=== PATIENT | male | born 1980 | race Caucasian/White ===

== ENCOUNTER 2021-11-30 11:56 | Emergency (ER) | payer OTHER, SELFPAY ==
[2021-11-30 12:03] VITALS: BP 136/87; PULSE 80; RESP 16; TEMP 37.3; O2SAT 100
--- NOTE | 2021-11-30 12:06 | ED.URI ---
HPI - URI/Sore Throat General Chief Complaint: Upper Respiratory Infection Stated Complaint: Sore Throat Time Seen by Provider: 11/30/21 12:00 Source: patient and RN notes reviewed History of Present Illness HPI Narrative: Patient is a 41-year-old male who presents the urgent care with complaints of a sore throat. Patient states that started 1 week ago and his doctor refuses to see him until he has a negative PCR test. Patient denies of any known past COVID diagnosis. States that he had one vaccination and had palpitations and health anxiety . Patient did not further the vaccine. Patient denies of any headache, nausea, vomiting, fever. Patient has not taken anything [id number] for his symptoms. No other acute complaints. No acute distress noted. Patient aware of the plan of care. Some parts of this dictation were generated by voice recognition software and may contain typographical and/or grammatical inaccuracies. Related Data Allergies Allergy/AdvReac Type Severity Reaction Status Date / Time Penicillins Allergy Unknown Rash Verified 11/30/21 12:11 Review of Systems Review of Systems: CONSTITUTIONAL: Denies fever, chills, or sweats. EYES: Denies visual changes, redness, or discharge. ENT: Denies rhinorrhea, congestion, otalgia. Reports of sore throat CARDIOVASCULAR: Denies chest pain, palpitations, or edema. RESPIRATORY: Denies cough or dyspnea. GASTROINTESTINAL: Denies abdominal pain, nausea, vomiting, or diarrhea. GENITOURINARY: Denies dysuria or hematuria. SKIN: Denies rash or itching. MUSCULOSKELETAL: Denies back pain, joint pain, or myalgia. NEUROLOGIC: Denies headache, numbness, or weakness. All other systems reviewed are negative, except as documented in HPI. PMFSH Comments At the time of my signature, I reviewed and agree with the nursing past medical, surgical, social, and family history. There is no relevant family history pertinent to the patient complaint. Exam Narrative: GENERAL: This is a well-nourished, well-developed patient, in no apparent distress. HEAD: normocephalic, atraumatic. EYES: PERRL. Sclera clear/white. Vision is grossly intact. EARS: External ears normal, auditory canals clear and without drainage, TMs normal without perforation. Hearing grossly intact. NOSE: External nose normal with no obvious nasal discharge, nares without redness, no rhinorrhea. THROAT: Mucous membranes moist. Mild erythema noted to posterior oropharynx with mild postnasal drainage NECK: Neck supple, non-tender without lymphadenopathy CARDIOVASCULAR: Regular rate and rhythm without murmurs, gallops, or rubs. RESPIRATORY: Clear to auscultation. Breath sounds equal bilaterally. No wheezes, rales, or rhonchi. SKIN: warm, intact with no suspicious lesions or rash, good texture and turgor. NEURO: awake, alert, and oriented to person, place and time. There were no obvious focal neurologic abnormalities. EXTREMITIES: No clubbing, cyanosis, or edema. Course Course Level of Care: Express Care Visit Vital Signs Vital signs: Vital Signs Temperature 99.1 F 11/30/21 12:03 Pulse Rate 80 11/30/21 12:03 Respiratory Rate 16 11/30/21 12:03 Blood Pressure 136/87 11/30/21 12:03 Pulse Oximetry 100 11/30/21 12:03 Temperature 99.1 F 11/30/21 12:03 Pulse Rate 80 11/30/21 12:03 Respiratory Rate 16 11/30/21 12:03 Blood Pressure 136/87 11/30/21 12:03 Pulse Oximetry 100 11/30/21 12:03 Reviewed MDM - URI/Sore Throat MDM Narrative Medical decision making narrative: Reviewed lab results with the patient. He is aware that strep swab was negative. Educated patient on culture we will call within 72 hours culture is positive and antibiotics necessary. We will call you on the PCR results within 2 days. However, considering your symptoms have been ongoing for 1 week you would be considered out of quarantine. Advised the patient to complete the steroid regimen as prescribed. Make sure to eat and drink wi
[2021-12-01 17:14] LABS: SARS-CoV-2 RNA PCR Negative
== END 2021-11-30 12:40 | disposition home or self-care (01) ==
PROVIDERS: Emergency Provider Nurse Practitioner Family; PCP Nurse Practitioner Family
DX: J02.9 Acute pharyngitis, unspecified (principal); Z20.822 Contact with and (suspected) exposure to COVID-19
CPT/HCPCS: 87081; 87880; 99213; C9803; G0463; U0003; U0005

== ENCOUNTER 2022-01-31 10:45 | Emergency (ER) | payer OTHER, SELFPAY ==
[2022-01-31 10:49] VITALS: BP 148/88; PULSE 90; RESP 20; TEMP 36.9; O2SAT 100
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
== END 2022-01-31 12:11 | disposition home or self-care (01) ==
PROVIDERS: Emergency Provider Nurse Practitioner; PCP Nurse Practitioner Family
DX: T22.212A Burn of second degree of left forearm, initial encounter (principal); T22.242A Burn of second degree of left axilla, initial encounter; T31.0 Burns involving less than 10% of body surface; X16.XXXA Contact with hot heating appliances, radiators and pipes, initial encounter
CPT/HCPCS: 99212; G0463

== ENCOUNTER 2023-12-02 14:37 | Emergency (ER) | payer OTHER, SELFPAY ==
--- NOTE | ~2023-12-02 | XR_ITS ---
EXAM: XR shoulder LT min 2V DATE: 12/02/2023 15:01 HISTORY: FELL FORWARD OFF OF SKATEBOARD X 1 WEEK AGO. LROM. . COMPARISON: None available. FINDINGS: Normal mineralization. No fracture or dislocation. No lytic or blastic lesion. Mild degene rative change at the AC joint. No erosion or periosteal change. Soft tissues within normal limits. IMPRESSION: No acute osseous finding the left shoulder. Reviewed, dictated and finalized at location K. NING MATRON
[2023-12-02 14:42] VITALS: BP 133/82; PULSE 89; RESP 20; TEMP 37.1; O2SAT 100
--- NOTE | 2023-12-02 15:02 | ED.UPPEXIN ---
HPI - Extremity Injury (Upper) General Chief Complaint: Extremity Injury, Upper Stated Complaint: Left Shoulder Injury Source: patient, RN notes reviewed and old records reviewed Mode of arrival: ambulatory Limitations: no limitations History of Present Illness HPI narrative: 43-year-old male patient presents to [facility] with complaint left shoulder pain that started 1 week ago after patient fell off his Motorized skateboard. patient states his nonpainful to palpitation but hurts with any type of range of motion. Patient has not tried or taken anything for pain. Related Data Home Medications Medication Instructions Recorded Confirmed No Home Medications 12/02/23 12/02/23 Allergies Allergy/AdvReac Type Severity Reaction Status Date / Time Penicillins Allergy Unknown Rash Verified 12/02/23 15:03 Review of Systems Constitutional: Constitutional: Reports no additional constitutional complaints, Denies body ache(s), Denies chills, Denies fatigue, Denies fever(s) and Denies headache(s) Eyes: Eyes: Reports no additional eye complaints and Denies blurry vision ENT: Reports system reviewed and no additional complaints, except as documented, Denies vertigo, Denies dizziness, Denies ear discharge, Denies otalgia, Denies facial pain, Denies headache(s), Denies nasal congestion, Denies nasal discharge, Denies sinus pain, Denies sinus pressure and Denies sore throat Cardiovascular: Cardiovascular: Reports no additional cardiovascular complaints, Denies chest pain, Denies chest pain at rest, Denies rapid heart rate and Denies dyspnea Respiratory: Respiratory: Reports no additional respiratory complaints, Denies chest congestion, Denies cough, Denies pain on inspiration, Denies pain with cough and Denies dyspnea Gastrointestinal: Gastrointestinal: Denies abdominal pain, Denies diarrhea, Denies nausea and Denies vomiting Musculoskeletal: Musculoskeletal: Reports as per HPI Comments: Left shoulder pain Integumentary/Breasts: Skin/Breast: Denies rash Neurologic: Reports system reviewed and no additional complaints, except as documented, Denies vertigo, Denies dizziness and Denies headache(s) Endocrine: Endocrine: Denies fatigue PMFSH Comments At the time of my signature, I reviewed and agree with the nursing past medical, surgical, social, and family history. There is no relevant family history pertinent to the patient complaint. Exam Const: General: cooperative, healthy appearing, no acute distress and well nourished Nutritional Appearance: well nourished Orientation/consciousness: patient oriented x3 Limitations: no limitations HENMT: Head: normal to inspection and normocephalic Ears: external ears normal, TM's normal bilaterally, mastoids normal and Abnormal EAC present Face/Nose/Sinus: normal facial exam Face and sinus: normal facial exam Mouth: Yes Normal oral and palatal mucosa present, Yes oropharynx normal and Yes moist mucous membranes Throat: tonsils normal, uvula midline and no uvular edema Eyes: General: appearance normal, both eyes and all related structures Sclera: sclerae normal Pupils: Equal, round and reactive pupils present Resp: Effort & Inspection: normal respiratory effort, able to speak in complete sentences, no audible wheezes, no cough, no respiratory distress and no retractions Skin: General skin exam: normal color and no rashes or lesions noted Neuro: General: patient oriented x3 Cranial nerves: Yes Equal, round and reactive pupils present Extrem: Left upper extremity: shoulder/upper arm inspection abnormal and abnormal ROM pain with active ROM and pain with passive ROM; no tenderness, no swelling, no abrasions, no lacerations, no ecchymosis, no crepitus, no foreign bodies, no penetrating wound, no deformity and no unsual warmth and elbow/forearm normal to inspection and normal ROM; no tenderness and no swelling Psych: Appearance: grossly normal Mental Status: mental status grossly
== END 2023-12-02 15:20 | disposition home or self-care (01) ==
PROVIDERS: Emergency Provider Registered Nurse; PCP Nurse Practitioner Family
DX: S43.402A Unspecified sprain of left shoulder joint, initial encounter (principal); V00.131A Fall from skateboard, initial encounter
CPT/HCPCS: 73030; 99213; G0463

== ENCOUNTER 2024-09-15 14:32 | Emergency (ER) | payer OTHER, SELFPAY ==
--- NOTE | ~2024-09-15 | XR_ITS ---
EXAM: XR knee LT min 4V DATE: 09/15/2024 15:51 HISTORY: pain; limited rom . COMPARISON: None available. FINDINGS: Decreased mineralization, possibly an artifact of technique. No fracture or dislocation. N o lytic or blastic lesion. Mild degenerative change. Quadriceps enthesopathy. No erosion or periostea l change. Soft tissues within normal limits. IMPRESSION: No acute osseous finding in the left knee. Reviewed, dictated and finalized at location K. AGING MACHINE OPERATOR
[2024-09-15 14:46] VITALS: BP 133/91; PULSE 97; RESP 20; TEMP 36.7; O2SAT 99
--- NOTE | 2024-09-15 16:06 | ED.GENADULT ---
HPI - General Adult General Chief complaint: Extremity Problem,Nontraumatic Stated complaint: left knee pain Time Seen by Provider: 09/15/24 15:21 Source: patient, RN notes reviewed and old records reviewed Mode of arrival: ambulatory Limitations: no limitations History of Present Illness HPI narrative: 44-year-old male to Express Care with complaint of left medial knee pain for 2 days. Patient denies injury, swelling, numbness, tingling, weakness. patient reports prior episodes of similar pain, states this is worse than prior episodes. Patient reports high pain tolerance, states he has not attempted to treat at home with [id number] medications. Patient reports using a knee brace with mild improvement. Patient states he would like to see his chiropractor for this however his chiropractor will not treat him without an x-ray. Patient requesting x-ray. Related Data Home Medications ?Medication ?Instructions ?Recorded ?Confirmed ?Last Taken ?Type No Home Medications 12/02/23 09/15/24 Unknown History Allergies Allergy/AdvReac Type Severity Reaction Status Date / Time Penicillins Allergy Unknown Rash Verified 09/15/24 14:51 Review of Systems Review of Systems: All systems reviewed & are unremarkable except as noted in HPI and below Constitutional: Constitutional: Reports no additional constitutional complaints Eyes: Eyes: Reports no additional eye complaints ENT: Reports system reviewed and no additional complaints, except as documented Cardiovascular: Cardiovascular: Reports no additional cardiovascular complaints, Denies chest pain and Denies dyspnea Respiratory: Respiratory: Reports no additional respiratory complaints, Denies cough and Denies dyspnea Musculoskeletal: Musculoskeletal: Reports no additional musculoskeletal complaints Neurologic: Reports system reviewed and no additional complaints, except as documented Psychiatric: Psychiatric: Reports no additional psychiatric complaints PMFSH Comments At the time of my signature, I reviewed and agree with the nursing past medical, surgical, social, and family history. There is no relevant family history pertinent to the patient complaint. Exam Const: General: cooperative, healthy appearing, comfortable, no acute distress, alert and well nourished Nutritional Appearance: well nourished Orientation/consciousness: patient oriented x3 Limitations: no limitations HENMT: Head: normal to inspection Ears: external ears normal Face/Nose/Sinus: Normal external nose present, Normal nares present, normal facial exam, No erythema and No edema Face and sinus: normal facial exam, no erythema and no edema Mouth: Yes Normal oral and palatal mucosa present Eyes: General: appearance normal, both eyes and all related structures Neck: Neck: normal visual inspection, full ROM and no meningeal signs Lymphatic: no lymphadenopathy noted and no lymphedema noted Chest: Chest palpation & inspection: normal inspection of the chest Resp: Effort & Inspection: normal respiratory effort and able to speak in complete sentences Auscultation: clear to auscultation bilaterally Cardio: Jugular venous distension: no JVD Rate: regular rate Rhythm: regular rhythm Back/Spine/Pelvis: Cervical Spine: cervical ROM normal Skin: General skin exam: normal color, no rashes or lesions noted and turgor normal Neuro: General: patient oriented x3, gait normal, moves all extremities and no meningeal signs Speech: normal speech Gait exam (Neuro): Normal gait present Extrem: General: normal to inspection, full ROM and capillary refill normal Psych: Appearance: grossly normal and well kempt Course Course Emergency Course: Some parts of this dictation were generated by voice recognition software and may contain typographical and/or grammatical inaccuracies. Level of Care: Express Care Visit Vital Signs Vital signs: Vital Signs Temperature 36.7 C 09/15/24 14:46 Pulse Rate 97 09/15/24 14:46 Respiratory Rate 20 09/15/24 14:46 Blood Pressure 133/91 H 09/15/24 14:46 Pulse Oximetry 99 09/15/24 14:46 Oxygen Delivery Room Air 09/15/24 14:46 Temperature 36.7 C 09/15/24 14:46 Pulse Rate 97 09/15/24 14:46 Respiratory Rate 20 09/15/24 14:46 Blood Pressure 133/91 H 09/15/24 14:46 Pulse Oximetry 99 09/15/24 14:46 Oxygen Delivery Room Air 09/15/24 14:46 reviewed Medical Decision Making MDM Narrative Medical decision making narrative: 44-year-old male to Express Care with complaint of left medial knee pain for 2 days. Patient denies injury, swelling, numbness, tingling, weakness. patient reports prior episodes of similar pain, states this is worse than prior episodes. Patient reports high pain tolerance, states he has not attempted to treat at home with [id number] medications. Patient reports using a knee brace with mild improvement. Patient states he would like to see his chiropractor for this however his chiropractor will not treat him without an x-ray. Patient requesting x-ray. On exam, anterior medial tenderness of left knee with palpation. Exam otherwise unremarkable radiology impression:No acute osseous finding in the left knee. Patient is sitting comfortably in exam room nontoxic in appearance. Patient appropriate for outpatient treatment and follow-up. Discharge instructions reviewed with patient, as well as provided in writing per nursing staff. The instructions also include specific and strict return/GO TO THE ER as well as f/u information. All questions have been answered, and the patient deny any further questions with discharge and discharge plan. Some parts of this dictation were generated by voice recognition software and may contain typographical and/or grammatical inaccuracies. Differential Diagnosis Differential Diagnosis: patellar fracture, knee sprain, knee pain, contusion of knee, DVT Vital Signs Vital Signs: Vital Signs Temperature 36.7 C 09/15/24 14:46 Pulse Rate 97 09/15/24 14:46 Respiratory Rate 20 09/15/24 14:46 Blood Pressure 133/91 H 09/15/24 14:46 Pulse Oximetry 99 09/15/24 14:46 Oxygen Delivery Room Air 09/15/24 14:46 Temperature 36.7 C 09/15/24 14:46 Pulse Rate 97 09/15/24 14:46 Respiratory Rate 20 09/15/24 14:46 Blood Pressure 133/91 H 09/15/24 14:46 Pulse Oximetry 99 09/15/24 14:46 Oxygen Delivery Room Air 09/15/24 14:46 Imaging Data Radiologist's impression: EXAM: XR knee LT min 4V DATE: 09/15/2024 15:51 HISTORY: pain; limited rom . COMPARISON: None available. FINDINGS: Decreased mineralization, possibly an artifact of technique. No fracture or dislocation. No lytic or blastic lesion. Mild degenerative change. Quadriceps enthesopathy. No erosion or periosteal change. Soft tissues within normal limits. IMPRESSION: No acute osseous finding in the left knee. Discharge Plan Discharge Clinical Impression: Left knee pain Patient Disposition: Home, Self-Care Condition: Stable Instructions: Knee Pain (ED) Additional Instructions: rest, ice, compression, elevation alternate Tylenol and ibuprofen as needed for pain for new or worsening symptoms go directly to the emergency department Patient Language: Hungarian Prescriptions: No Action No Home Medications Follow-up/Referrals: Villagomez,Mel A., TOOL CRIB CLERK [Primary Care Provider] - Stand Alone Forms: Work/School Release IP
--- NOTE | 2024-09-15 16:14 | PC.NURSE ---
RN to room to have Pt change into gown so PRODUCE MANAGER can examine the left leg. Pt declined, saying he has boxer's on, it's fine . Pt informed PRODUCE MANAGER will be in shortly to do her examination.
== END 2024-09-15 16:52 | disposition home or self-care (01) ==
PROVIDERS: Emergency Provider Nurse Practitioner Family; PCP Nurse Practitioner Family
DX: M25.562 Pain in left knee (principal)
CPT/HCPCS: 73564; 99213; G0463

== ENCOUNTER 2025-01-28 17:18 | Emergency (ER) | payer OTHER, SELFPAY ==
--- NOTE | ~2025-01-28 | XR_ITS ---
HISTORY: fell off electric skateboard COMPARISON: 12/02/2023 TECHNIQUE: 2 views of the left shoulder were performed FINDINGS: No acute fracture. The glenohumeral and acromioclavicular joint space is maintained The visualized portion of the adjacent left lung is clear. The humeral head is well seated within the glenoid fossa. IMPRESSION: No acute fracture or anterior dislocation. Reviewed, dictated and finalized at location A.
[2025-01-28 17:27] VITALS: BP 149/86; PULSE 90; RESP 18; TEMP 36.6; O2SAT 98
--- OUTSIDE RECORDS SUMMARY | 2025-01-28 17:35 | XMS_ITS | Clinical Summary ---
Author Organization [facility] Address [address] [place] [address] Phone Care Team Providers Care Repair Service Clerk Name Role Phone Vandana Tubbs MD Primary Care Provider [phone] Social History Tobacco Use Types Packs/Day Years Used Date Smoking Tobacco: Never Assessed Sex and Gender Information Value Date Recorded Sex Assigned at Not on file Legal Sex Male 11:47 PM CDT Gender Identity Not on file Sexual Orientation Not on file Plan of Treatment Health Maintenance Due Date Last Done Comments Hepatitis C Virus (HCV) Screening 1978 TdaP Immunization 1978 Hepatitis B Immunization (1 of 3 - 19+ 3-dose series) 1997 Colonoscopy 2023 Colorectal Cancer Screening 2023 Influenza Immunization (#1) 2024 SARS-COV-2 Immunization ( season) 2024 Respiratory Syncytial Virus (RSV) Immunization (Adult) (1 - 1-dose 75+ series) 2053 Meningococcal Immunization (ACWY) Aged Out No longer eligible based on patient's age to complete this topic Pneumococcal Immunization Combined Aged Out No longer eligible based on patient's age to complete this topic Rotavirus Immunization Aged Out No lo nger eligible based on patient's age to complete this topic Insurance MEDICAID [employer] Care Teams Repair Service Clerk Relationship Specialty Start Date End Date Vandana Tubbs MD [address] [place] [address] PCP - General Family Medicine 02/22/16
--- OUTSIDE RECORDS SUMMARY | 2025-01-28 17:36 | XMS_ITS | Data Portability ---
Author Organization [facility]ASH[facility]abel Address [address] [place] [address] Care Team Providers Care Biology Professor Name Role Phone BLACKWELL, MEL Primary Care Provider Assessment No assessment recorded. Plan of Treatment Reminders Order Date Submit Date Provider Last Modified By Organization Details Last Modified Time Details Appointments None recorded . Lab C reactive protein, QN, serum or plasma 2024 025 [facility], [address] [place] [address] 2, [place], [address], 5 16:14:40 magnesiu m, serum or plasma 2024 025 [facility], [address] [place] [address] 2, [place], [address], 5 03:08:37 cobalami n and folate panel, serum 2024 025 [facility], [address] [place] [address] 2, [place], [address], 5 16:14:35 TSH, ultra-se nsitive, serum 2024 025 [facility], [address] [facility] 2, [place], [address], 5 16:14:37 lipid panel, serum 2024 025 [facility], [address] [facility], [facility] 2, [place], [address], 5 03:08:34 CMP, serum or plasma 2024 025 [facility], [address] [facility], [facility] 2, [place], [address], 5 03:08:35 HbA1c (hemoglo bin A1c), blood 2024 025 [facility], [address] [facility], [facility] 2, [place], [address], 5 16:14:36 CBC w/ auto diff 2024 025 [facility], [address] [facility], [facility] 2, [place], [address], 5 03:08:38 erythroc yte sediment ation rate by westergr en method 2024 025 [facility], [address] [facility], [facility] 2, [place], [address], 5 16:14:39 respirat ory allergen panel - [facility] c 2024 025 [facility], [address] [facility], [facility] 2, [place], [address], 5 16:14:32 PEDRO (antinuc lear antibodi es) screen, ifa, serum 2024 025 [facility], [address] [facility], [facility] 2, [place], [address], 5 16:14:30 food allergen panel, serum 2024 025 [facility], [address] [facility], [facility] 2, [place], [address], 5 16:14:34 fecal occult blood, immunoas say, stool 2024 025 [facility], [address], [address], [place], [address], 5 09:42:41 Referral audiolog ist referral 2024 025 [facility], [address] [place], [address], 5 19:19:46 general surgeon referral 2023 024 GLENN Wylie MD, 4 [facility] , [address], [place], [address], 4 12:32:41 Procedures None recorded . Surgeries None recorded . Imaging CT, sinuses, w/o contrast 2024 025 [facility] Scheduling, 1 [facility] , [place], [address], 5 15:10:07 Medication Orders Zithroma x Z-Jerardo 250 mg tablet 2024 025 [id number], [address], [place], [place], [id number], 5 11:34:01 fluticas one propiona te 50 mcg/actu ation nasal spray,hernandez spension 2024 025 [id number], [address], [place], [place], [id number], 5 11:34:03 cetirizi ne 10 mg tablet 2024 025 [facility][id number], [address], [place], [place], [id number], 5 11:34:01 cefdinir 300 mg capsule 2023 025 [facility][id number], [address], [place], [place], [id number], 5 09:16:08 loratadi ne 10 mg tablet 2023 025 [facility][id number], [address], [place], [place], [id number], 5 09:16:11 loratadi ne 10 mg tablet 2023 024 [facility][id number], [address], [place], [place], [id number], 5 09:15:53 Patient TargetsNo targets recorded. Patient Instructions Encounter Date Encounter Id Patient Instructions Last Modified By Organization Details Last Modified Time 06/02/2024 [id number] inguinal hernia: care instructions Not available 06/02/2024 09:59:22 Quitting Tobacco : Care Instructions Not available 06/02/2024 10:13:54 -A hernia happen s when part of an organ protrudes through your muscle wall, usually in your abdomen or groin. It can be congenital or acquired. -If you aren't able to push the hernia in, the contents of the hernia may be trapped (incarcerated) in the abdominal wall. An incarcerated hernia can become strangulated, which cuts off the blood flow to the tissue that's trapped. A strangulated hernia can be life-threatening if it isn't treated. -Signs and symptoms of a strangulated hernia include: Nausea, vomiting or both Fever Sudden pain that quickly intensifies A hernia bulge that turns red, purple or dark Inability to move your bowels or pass gas -Seek immediate care if a hernia bulge turns red, purple or dark or if you notice any other signs or symptoms of a strangulated hernia. Not available 06/02/2024 10:13:43 follow up as needed Not available 06/02/2024 10:13:49 07/28/2024 [id number] A healthy lifestyle: care instructions Not available 07/28/2024 16:08:14 seasonal allergies: care instructions Not available 07/28/2024 16:07:43 Avoid potential triggers, take allergy medication daily. Sleep with windows closed and replace filters in HVAC regularly. Not available 07/28/2024 16:08:26 follow up as needed Not available 07/28/2024 16:09:14 10/05/2024 [id number] A healthy lifestyle: care instructions Not available 10/05/2024 12:15:45 chronic sinusitis: care instructions Not available 10/05/2024 12:16:48 seasonal allergies: care instructions Not available 10/05/2024 12:15:45 Take all antibiotics prescribed to you. If any fever or increase in pain, call/return to office. Not available 10/05/2024 12:16:55 follow up as needed Not available 10/05/2024 12:17:00 11/30/2024 [id number] A healthy lifestyle: care instructions Not available 11/30/2024 09:42:19 high cholesterol : care instructions Not available 11/30/2024 09:42:20 learning about mood disorders Not available 11/30/2024 09:42:19 Increase intake of fresh fruits, and vegetables. Avoid packaged foods and fast foods. Follow a low salt diet, drink at least 8-10 8oz glasses of water a day, exercise most days of the week. Take all medications as prescribed. Keep appointments with PCP and all specialists. Not available 12/01/2024 15:59:09 dwp labs needed, plan pending results Not available 12/01/2024 15:59:25 Reason for Referral General Surgeon Referral for Inguinal hernia Referring Physician: Mel Blackwell, Family Medicine, Encounter Date: 06/02/2024 Physical Sciences Instructor Referral for Fritz ateral tinnitus Referring Physician: Tuan Herr Otolaryngology, Encounter Date: 01/26/2025 Results Created Date Observation Date Name Description Value Unit Range Abnormal Flag Note LastModifiedBy Organization Detail LastModifiedTime 11/30/19 25 11/30/2024 LIPID PANEL cholesterol, total 157 mg/dL 100-19 9 Not Available [facility] Department [address] [place], [address], 12/01/2024 03:08:34 11/30/19 25 11/30/2024 LIPID PANEL triglyceride s 100 mg/dL 0-149 Not Available [facility] Department [address] [place], [address], 12/01/2024 03:08:34 11/30/19 25 11/30/2024 LIPID PANEL HDL cholesterol 42 mg/dL 40-999 Not Available [facility] Department [address] [place], [address], 12/01/2024 03:08:34 11/30/19 25 11/30/2024 LIPID PANEL VLDL cholesterol anthony 20 mg/dL 5-40 Not Available [facility] Department [address] [place] [address], [address], 12/01/2024 03:08:34 11/30/19 25 11/30/2024 LIPID PANEL LDL chol calc (nih) 108 mg/dL 0-99 above high normal Not Available [facility] Department [address] [place] [address], [address], 12/01/2024 03:08:34 11/30/19 25 11/30/2024 COMP. METAB OLIC PANEL (14) glucose 91 mg/dL 70-99 Not Available [facility] Department [address] [place], [address], 12/01/2024 03:08:35 11/30/19 25 11/30/2024 COMP. METAB OLIC PANEL (14) BUN 14 mg/dL 6-24 Not Available [facility] Department [address] [place] [address], [address], 12/01/2024 03:08:35 11/30/19 25 11/30/2024 COMP. METAB OLIC PANEL (14) creatinine 1.25 mg/dL 0.76-1 .27 Not Available [facility] Department [address] [place] [address], [address], 12/01/2024 03:08:35 11/30/19 25 11/30/2024 COMP. METAB OLIC PANEL (14) eGFR 72 >=60 Units for eGFR value s are mL/mi n/1.7 3 The eGFR Calcu latio n has not been valid ated for patie nts under the age of 18. If test resul ts are displ ayed for a patie nt under the age of 18, disre chucho that value . Not Available [facility] Department [address] [place] [address], [address], 12/01/2024 03:08:35 11/30/19 25 11/30/2024 COMP. METAB OLIC PANEL (14) BUN/creatini ne ratio 11 9-20 Not Available [facility] Department [address] [place] [address], [address], 12/01/2024 03:08:35 11/30/19 25 11/30/2024 COMP. METAB OLIC PANEL (14) sodium 141 mmol/ L 134-14 4 Not Available [facility] Department [address] [place] [address], [address], 12/01/2024 03:08:35 11/30/19 25 11/30/2024 COMP. METAB OLIC PANEL (14) potassium 4.1 mmol/ L 3.5-5. 2 Not Available [facility] Department [address] [place] [address], [address], 12/01/2024 03:08:35 11/30/19 25 11/30/2024 COMP. METAB OLIC PANEL (14) chloride 103 mmol/ L 96-106 Not Available [facility] Department [address] [place] [address], [address], 12/01/2024 03:08:35 11/30/19 25 11/30/2024 COMP. METAB OLIC PANEL (14) carbon dioxide, total 28 mmol/ L 20-29 Not Available [facility] Department [address] [place] [address], [place], [address], 12/01/2024 03:08:35 11/30/19 25 11/30/2024 COMP. METAB OLIC PANEL (14) calcium 9.7 mg/dL 8.7-10 .2 Not Available [facility] Department [address] [place], [address], 12/01/2024 03:08:35 11/30/19 25 11/30/2024 COMP. METAB OLIC PANEL (14) protein, total 7.2 g/dL 6.0-8. 5 Not Available [facility] Department [address] [place], [address], 12/01/2024 03:08:35 11/30/19 25 11/30/2024 COMP. METAB OLIC PANEL (14) albumin 4.7 g/dL 4.1-5. 1 Not Available [facility] Department [address] [place], [address], 12/01/2024 03:08:35 11/30/19 25 11/30/2024 COMP. METAB OLIC PANEL (14) globulin, total 2.5 g/dL 1.5-4. 5 Not Available [facility] Department [address] [place], [address], 12/01/2024 03:08:35 11/30/19 25 11/30/2024 COMP. METAB OLIC PANEL (14) A/G ratio 2.0 1.2-2. 2 Not Available [facility] Department [address] [place], [address], 12/01/2024 03:08:35 11/30/19 25 11/30/2024 COMP. METAB OLIC PANEL (14) bilirubin, total 0.4 mg/dL 0.0-1. 2 Not Available [facility] Department [address] [place], [address], 12/01/2024 03:08:35 11/30/19 11/30/2024 COMP. METAB OLIC PANEL (14) alkaline phosphatase 134 IU/L 44-121 above high normal Not Available [facility] Department [address] [place], [address], 12/01/2024 03:08:35 11/30/19 25 11/30/2024 COMP. METAB OLIC PANEL (14) AST (SGOT) 19 IU/L 0-40 Not Available [facility] Department [address] [place], [address], 12/01/2024 03:08:35 11/30/19 25 11/30/2024 COMP. METAB OLIC PANEL (14) ALT (SGPT) 35 IU/L 0-44 Not Available [facility] Department [address] [place], [address], 12/01/2024 03:08:35 11/30/19 25 11/30/2024 MAGNE SIUM magnesium 2.3 mg/L 1.6-2. 3 Not Available [facility] Department [address] [place], [address], 12/01/2024 03:08:37 11/30/19 25 11/30/2024 CBC WITH DIFFE RENTI AL/PL ATELE T WBC 4.4 x10e3 /uL 3.4-10 .8 Not Available [facility] Department [address] [place], [address], 12/01/2024 03:08:38 11/30/19 25 11/30/2024 CBC WITH DIFFE RENTI AL/PL ATELE T RBC 5.15 x10e6 /uL 4.14-5 .80 Not Available [facility] Department [address] [place], [address], 12/01/2024 03:08:38 11/30/19 25 11/30/2024 CBC WITH DIFFE RENTI AL/PL ATELE T hemoglobin 16.1 g/dL 13.0-1 7.7 Not Available [facility] Department [address] [place], [address], 12/01/2024 03:08:38 11/30/1911/30/2024 CBC WITH DIFFE RENTI AL/PL ATELE T hematocrit 46.1 % 37.5-5 1.0 Not Available [facility] Department [address] [place], [address], 12/01/2024 03:08:38 11/30/1911/30/2024 CBC WITH DIFFE RENTI AL/PL ATELE T MCV 90 fL 79-97 Not Available [facility] Department [address] [place], [address], 12/01/2024 03:08:38 11/30/1911/30/2024 CBC WITH DIFFE RENTI AL/PL ATELE T MCH 31.3 pg 26.6-3 3.0 Not Available [facility] Department [address] [place], [address], 12/01/2024 03:08:38 11/30/1911/30/2024 CBC WITH DIFFE RENTI AL/PL ATELE T MCHC 34.9 g/dL 31.5-3 5.7 Not Available [facility] Department [address] [place], [address], 12/01/2024 03:08:38 11/30/1911/30/2024 CBC WITH DIFFE RENTI AL/PL ATELE T RDW 12.6 % 11.5-1 4.5 Not Available [facility] Department [address] [place], [address], 12/01/2024 03:08:38 11/30/19 25 11/30/2024 CBC WITH DIFFE RENTI AL/PL ATELE T platelets 267 x10e3 /uL 150-45 0 Not Available [facility] Department [address] [place], [address], 12/01/2024 03:08:38 11/30/19 25 11/30/2024 CBC WITH DIFFE RENTI AL/PL ATELE T neutrophils 57 % notest b. Not Available [facility] Department [address] [place], [address], 12/01/2024 03:08:38 11/30/19 25 11/30/2024 CBC WITH DIFFE RENTI AL/PL ATELE T lymphs 33 % notest b. Not Available [facility] Department [address] [place], [address], 12/01/2024 03:08:38 11/30/19 25 11/30/2024 CBC WITH DIFFE RENTI AL/PL ATELE T monocytes 6 % notest b. Not Available [facility] Department [address] [place], [address], 12/01/2024 03:08:38 11/30/19 25 11/30/2024 CBC WITH DIFFE RENTI AL/PL ATELE T eos 3 % notest b. Not Available [facility] Department [address] [place], [address], 12/01/2024 03:08:38 11/30/19 25 11/30/2024 CBC WITH DIFFE RENTI AL/PL ATELE T basos 1 % notest b. Not Available [facility] Department [address] [place], [address], 12/01/2024 03:08:38 11/30/19 25 11/30/2024 CBC WITH DIFFE RENTI AL/PL ATELE T neutrophils (absolute) 2.5 x10e3 /uL 1.4-7. 0 Not Available [facility] Department [address] [place], [address], 12/01/2024 03:08:38 11/30/19 25 11/30/2024 CBC WITH DIFFE RENTI AL/PL ATELE T lymphs (absolute) 1.5 x10e3 /uL 0.7-3. 1 Not Available [facility] Department [address] [place], [address], 12/01/2024 03:08:38 11/30/19 25 11/30/2024 CBC WITH DIFFE RENTI AL/PL ATELE T monocytes(ab solute) 0.3 x10e3 /uL 0.1-0. 9 Not Available [facility] Department [address] [place], [address], 12/01/2024 03:08:38 11/30/19 25 11/30/2024 CBC WITH DIFFE RENTI AL/PL ATELE T eos (absolute) 0.1 x10e3 /uL 0.0-0. 4 Not Available [facility] Department [address] [place] [address], [address], 12/01/2024 03:08:38 11/30/19 25 11/30/2024 CBC WITH DIFFE RENTI AL/PL ATELE T baso (absolute) 0.0 x10e3 /uL 0.0-0. 2 Not Available [facility] Department [address] [place] [address], [address], 12/01/2024 03:08:38 11/30/19 25 11/30/2024 CBC WITH DIFFE RENTI AL/PL ATELE T immature granulocytes 0.2 % notest b. Not Available [facility] Department [address] [place] [address], [address], 12/01/2024 03:08:38 11/30/19 25 11/30/2024 CBC WITH DIFFE RENTI AL/PL ATELE T immature grans (abs) 0.0 x10e3 /uL 0.0-0. 1 Not Available [facility] Department [address] [place] [address], [address], 12/01/2024 03:08:38 11/30/19 25 11/30/2024 CBC WITH DIFFE RENTI AL/PL ATELE T NRBC 0 % 0-0 Not Available [facility] Department [address], [place], [address], 12/01/2024 03:08:38 11/30/1912/02/2024 PEDRO BY IFA RFX TITER /VALERY ZAHIDA PEDRO by ifa rfx titer/patter n POSITI VE abnormal Negat jen <1:80 Borde rline 1:80 Posit jen >1:80 Not Available [facility] ([facility]) [address] [facility], [place], [address], 12/03/2024 16:14:30 11/30/1911/30/2024 ALLER GENS W/TOT AL IGE AREA 8 class description COMMEN T Level s of Speci fic IgE Class Descr iptio n of Class ----- ----- ----- ----- ----- -- ----- ----- ----- ----- ----- < 0.10 0 Negat jen 0.10 - 0.31 0/I Equiv ocal/ Low 0.32 - 0.55 I Low 0.56 - 1.40 II Moder ate 1.41 - 3.90 III High 3.91 - 19.00 IV Very High 19.01 - 100.0 0 V Very High >100. 00 Very High Not Available [facility] ([facility]) [address] [facility], [place], [address], 12/03/2024 16:14:32 11/30/19 25 12/03/2024 ALLER GENS W/TOT AL IGE AREA 8 immunoglobul in E, total 106 IU/mL 6-495 Not Available [facility] ([facility]) [address] [place], [address], 12/03/2024 16:14:32 11/30/19 25 12/03/2024 ALLER GENS W/TOT AL IGE AREA 8 U309-RbI D pteronyssinu s <0.10 kU/L class0 Not Available [facility] ([facility]) [address] [facility], [place], [address], 12/03/2024 16:14:32 11/30/19 25 12/03/2024 ALLER GENS W/TOT AL IGE AREA 8 B780-YsA D farinae <0.10 Not Available [facility] ([facility]) [address] [facility], [place], [address], 12/03/2024 16:14:32 11/30/19 25 12/03/2024 ALLER GENS W/TOT AL IGE AREA 8 G381-FoJ CAT dander <0.10 Not Available [facility] ([facility]) [address] [facility], [place], [address], 12/03/2024 16:14:32 11/30/19 25 12/03/2024 ALLER GENS W/TOT AL IGE AREA 8 B321-JuJ dog dander <0.10 Not Available [facility] ([facility]) [address] [facility], [place], [address], 12/03/2024 16:14:32 11/30/19 25 12/03/2024 ALLER GENS W/TOT AL IGE AREA 8 F300-TnN mouse urine <0.10 Not Available [facility] ([facility]) [address] [facility], [place], [address], 12/03/2024 16:14:32 11/30/19 25 12/03/2024 ALLER GENS W/TOT AL IGE AREA 8 l554-LgE bermuda grass <0.10 Not Available [facility] ([facility]) [address] [facility], [place], [address], 12/03/2024 16:14:32 11/30/19 25 12/03/2024 ALLER GENS W/TOT AL IGE AREA 8 n756-AfV jona grass <0.10 Not Available [facility] ([facility]) [address] [facility], [place], [address], 12/03/2024 16:14:32 11/30/19 25 12/03/2024 ALLER GENS W/TOT AL IGE AREA 8 T999-GwH cockroach, estonian <0.10 Not Available [facility] ([facility]) [address] [facility], [place], [address], 12/03/2024 16:14:32 11/30/19 25 12/03/2024 ALLER GENS W/TOT AL IGE AREA 8 F706-OjF penicillium chrysogen <0.10 Not Available [facility] ([facility]) [address] [facility], [place], [address], 12/03/2024 16:14:32 11/30/19 25 12/03/2024 ALLER GENS W/TOT AL IGE AREA 8 R737-McT cladosporium herbarum <0.10 Not Available [facility] ([facility]) [address] [facility], [place], [address], 12/03/2024 16:14:32 11/30/19 25 12/03/2024 ALLER GENS W/TOT AL IGE AREA 8 B549-YwO aspergillus fumigatus <0.10 Not Available [facility] ([facility]) [address] [facility], [place], [address], 12/03/2024 16:14:32 11/30/19 25 12/03/2024 ALLER GENS W/TOT AL IGE AREA 8 M758-YpD alternaria alternata <0.10 Not Available [facility] ([facility]) [address] [facility], [place], [address], 12/03/2024 16:14:32 11/30/19 25 12/03/2024 ALLER GENS W/TOT AL IGE AREA 8 N805-WdE maple/box elder <0.10 Not Available [facility] ([facility]) [address] [facility], [place], [address], 12/03/2024 16:14:32 02/24/20 25 12/03/2024 ALLER GENS W/TOT AL IGE AREA 8 E152-KvZ cedar, mountain <0.10 Not Available [facility] ([facility]) [address], [place], [address], 12/03/2024 16:14:32 11/30/19 25 12/03/2024 ALLER GENS W/TOT AL IGE AREA 8 F845-OvS oak, white <0.10 Not Available [facility] ([facility]) [address], [place], [address], 12/03/2024 16:14:32 11/30/19 25 12/03/2024 ALLER GENS W/TOT AL IGE AREA 8 E433-MyJ elm, faroese <0.10 Not Available [facility] ([facility]) [address], [place], [address], 12/03/2024 16:14:32 11/30/19 25 12/03/2024 ALLER GENS W/TOT AL IGE AREA 8 J966-JxL walnut <0.10 Not Available [facility] ([facility]) [address], [place], [address], 12/03/2024 16:14:32 11/30/19 25 12/03/2024 ALLER GENS W/TOT AL IGE AREA 8 F378-AsO maple leaf sycamore <0.10 Not Available [facility] ([facility]) [address], [place], [address], 12/03/2024 16:14:32 11/30/19 25 12/03/2024 ALLER GENS W/TOT AL IGE AREA 8 H437-JgG cottonwood <0.10 Not Available [facility] ([facility]) [address], [place], [address], 12/03/2024 16:14:32 11/30/19 25 12/03/2024 ALLER GENS W/TOT AL IGE AREA 8 Z097-OhW binh, white <0.10 Not Available [facility] ([facility]) [address] [facility], [place], [address], 12/03/2024 16:14:32 11/30/19 25 12/03/2024 ALLER GENS W/TOT AL IGE AREA 8 N760-KsE pecan, hickory <0.10 Not Available [facility] ([facility]) [address] [facility], [place], [address], 12/03/2024 16:14:32 11/30/19 25 12/03/2024 ALLER GENS W/TOT AL IGE AREA 8 H189-GkU white mulberry <0.10 Not Available [facility] ([facility]) [address] [facility], [place], [address], 12/03/2024 16:14:32 11/30/19 25 12/03/2024 ALLER GENS W/TOT AL IGE AREA 8 Z514-CpJ ragweed, short <0.10 Not Available [facility] ([facility]) [address] [place], [address], 12/03/2024 16:14:32 11/30/19 25 12/03/2024 ALLER GENS W/TOT AL IGE AREA 8 V830-YrD thistle, rwandan <0.10 Not Available [facility] ([facility]) [address] [facility], [place], [address], 12/03/2024 16:14:32 11/30/19 25 12/03/2024 ALLER GENS W/TOT AL IGE AREA 8 X870-ZzR pigweed, common <0.10 Not Available [facility] ([facility]) [address] [facility], [place], [address], 12/03/2024 16:14:32 11/30/19 25 12/03/2024 ALLER GENS W/TOT AL IGE AREA 8 L895-BcL rough marshelder <0.10 Not Available [facility] ([facility]) [address] [place], [address], 12/03/2024 16:14:32 11/30/19 25 12/03/2024 FOOD ALLER GY PROFI LE T673-UzJ egg white <0.10 Not Available [facility] ([facility]) [address] [place], [address], 12/03/2024 16:14:33 11/30/19 25 12/03/2024 FOOD ALLER GY PROFI LE F745-OkZ peanut <0.10 Not Available [facility] ([facility]) [address] [place], [address], 12/03/2024 16:14:33 11/30/19 25 12/03/2024 FOOD ALLER GY PROFI LE P331-ImA soybean <0.10 Not Available [facility] ([facility]) [address] [place], [address], 12/03/2024 16:14:33 11/30/19 25 12/03/2024 FOOD ALLER GY PROFI LE K983-VdW milk 0.12 kU/L class0 /I abnormal Not Available [facility] ([facility]) [address] [place], [address], 12/03/2024 16:14:33 11/30/19 25 12/03/2024 FOOD ALLER GY PROFI LE F368-GjD clam <0.10 kU/L class0 Not Available [facility] ([facility]) [address] [place], [address], 12/03/2024 16:14:33 11/30/19 25 12/03/2024 FOOD ALLER GY PROFI LE D726-WoQ shrimp <0.10 Not Available [facility] ([facility]) [address] [place], [address], 12/03/2024 16:14:33 11/30/19 25 12/03/2024 FOOD ALLER GY PROFI LE L590-LlG walnut <0.10 Not Available [facility] ([facility]) [address] [facility], [place], [address], 12/03/2024 16:14:33 11/30/19 25 12/03/2024 FOOD ALLER GY PROFI LE E793-AtI codfish <0.10 Not Available [facility] ([facility]) [address] [facility], [place], [address], 12/03/2024 16:14:33 11/30/19 25 12/03/2024 FOOD ALLER GY PROFI LE E175-CiE scallop <0.10 Not Available [facility] ([facility]) [address] [facility], [place], [address], 12/03/2024 16:14:33 11/30/19 25 12/03/2024 FOOD ALLER GY PROFI LE V495-SuA wheat <0.10 Not Available [facility] ([facility]) [address] [facility], [place], [address], 12/03/2024 16:14:33 11/30/19 25 12/03/2024 FOOD ALLER GY PROFI LE Q199-JsP corn <0.10 Not Available [facility] ([facility]) [address] [facility], [place], [address], 12/03/2024 16:14:33 11/30/19 25 12/03/2024 FOOD ALLER GY PROFI LE [id number] sesame seed <0.10 Not Available [facility] ([facility]) [address] [place], [address], 12/03/2024 16:14:33 11/30/19 25 12/01/2024 VITAM IN B12 AND FOLAT E vitamin B12 471 pg/mL 232-12 45 Not Available [facility] ([facility]) [address] [place], [address], 12/03/2024 16:14:35 11/30/1912/01/2024 VITAM IN B12 AND FOLAT E folate (folic acid), serum 5.0 NG/mL >3.0 A serum folat e ervin ntrat ion of less than 3.1 ng/mL is consi dered to repre sent clini anthony defic iency . Not Available [facility] ([facility]) [address] [facility], [place], [address], 12/03/2024 16:14:35 11/30/1912/01/2024 HEMOG LOBIN A1C hemoglobin A1C 5.0 % 4.8-5. 6 Predi abete s: 5.7 - 6.4 Diabe garry: >6.4 Glyce arnold contr ol for adult s with diabe garry: <7.0 Not Available [facility] ([facility]) [address] [facility], [place], [address], 12/03/2024 16:14:36 11/30/19 25 12/01/2024 TSH TSH 1.720 uIU/m L 0.450- 4.500 Not Available [facility] ([facility]) [address] [place], [address], 12/03/2024 16:14:37 11/30/19 25 12/01/2024 SEDIM ENTAT ION RATE- WESTE RGREN sedimentatio n rate-westerg ramana 2 mm/HR 0-15 Not Available [facility] ([facility]) [address] [place], [address], 12/03/2024 16:14:39 11/30/19 25 12/01/2024 C-ALEE CTIVE PROTE IN, QUANT C-reactive protein, quant <1 mg/L 0-10 Not Available [facility] ([facility]) [address] [place], [address], 12/03/2024 16:14:40 11/30/19 25 12/02/2024 DEWAYNE STAIN ING PATTE RNS speckled pattern 1:80 ICAP carlitos stapleton re: AC-2, 4,5,2 9 Not Available [facility] ([facility]) [address] [facility], [place], [address], 12/03/2024 16:14:41 11/30/19 25 12/02/2024 DEWAYNE STAIN ING PATTE RNS note: Zaki frost Disea se Assoc iatio n ----- ----- --- ----- ----- ----- ----- ----- ----- ----- ----- ----- Homog eneou s Syste arnold Lupus Eryth emato ishan, Drug Induc ed Syste arnold Lupus Eryth emato ishan, Chron ic Autoi mmune hepat itis, [place] ile Idiop athic Arthr itis ----- ----- --- ----- ----- ----- ----- ----- ----- ----- ----- ----- Speck led Sjogr en Syndr ome, Syste arnold Lupus Eryth emato ishan, Subac council Cutan eous Lupus , Neona paulo Lupus , Conge nital Heart Block , Mixed Conne ctive Tissu e Disea se, Scler oderm a-dif fuse, Scler oderm a-Aut oimmu ne Myosi tis Overl ap Syndr ome, Syste arnold Lupus Eryth emato ishan-S clero derma -Auto immun e Myosi tis Overl ap Syndr ome, Syste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
--- NOTE | 2025-01-28 17:41 | ED_ITS ---
HPI - Extremity Injury (Upper) General Chief Complaint: Extremity Injury, Upper Stated Complaint: Left shoulder pain Time Seen by Provider: 01/28/25 17:40 Source: patient, family, RN notes reviewed and old records reviewed Mode of arrival: ambulatory Limitations: no limitations History of Present Illness HPI narrative: 44 year old male [facility] of falling forward with arms out stretched onto the concrete from an electric skateboard with areas of abrasions to left side of his body at 4pm today.. Patient reports discomfort to his left shoulder, has abrasion to his left arm, large abrasion to left side of abdomen and also on left leg. Patient states that he came here today for x- ray of his left shoulder., patient denies hitting his head when he fell or any LOC at time of injury, Patient reports that he cleansed abrasion areas with alcohol prior to arrival in clinic. MD complaint: injury to: left and shoulder Onset (ago): hour(s) (today at 4 pm) Place: outdoors Severity scale (1-10): 7 Treatments prior to arrival: other (cleansed abrasions with alcohol) Related Data Allergies Allergy/AdvReac Type Severity Reaction Status Date / Time Penicillins Allergy Unknown Rash Verified 01/28/25 17:23 Review of Systems Review of Systems: CONSTITUTIONAL: Denies fever, chills, or sweats. EYES: Denies visual changes, redness, or discharge. ENT: Denies rhinorrhea, congestion, sore throat, or otalgia. CARDIOVASCULAR: Denies chest pain, palpitations, or edema. RESPIRATORY: Denies cough or dyspnea. GASTROINTESTINAL: Denies abdominal pain, nausea, vomiting, or diarrhea. GENITOURINARY: Denies dysuria or hematuria. SKIN: positive for abrasions to his left arm, left side of abdomen and also to his left leg from fall onto concrete, no acute bleeding noted. MUSCULOSKELETAL: Denies back pain, reports left shoulder pain joint, or myalgia from fall NEUROLOGIC: Denies headache, numbness, or weakness. PSYCHIATRIC: reports history of anxiety or depression. All systems reviewed & are unremarkable except as noted in HPI and below PMFSH Past Medical History Medical History (Updated 01/31/25 @ 18:29 by Martine Romero NP) Second degree burn of left arm Anxiety Social History Social History Smoking status: Current every day smoker Tobacco type: cigarettes Living arrangements: with family Gender identity (if verbalized by the patient): Male Comments At time of signature, agree with nursing past medical, surgical, social and family history. There is no relevant family history pertinent to the presenting complaint Exam Narrative: GENERAL: Well-appearing, well-nourished, and in some acute distress to left shoulder and road rash areas HEAD: Normocephalic, atraumatic. EYES: PERRLA and EOMI. ENT: Nares clear, no rhinorrhea or epistaxis. Mucous membranes moist. TM's normal throat pink NECK: Supple. no lymphadenopathy CHEST: Clear to auscultation. No respiratory distress. SAO2 98% on room air HEART: Regular rate and rhythm. No murmur heard. Normal peripheral pulses. ABDOMEN: Soft, nontender, nondistended, normal active bowel sounds. EXTREMITIES: Normal range of motion. No edema.voices some discomfort with ROM of left shoulder, noted strong pulses left arm,nail beds have brisk capillary refi ll SKIN: Warm, dry, no rash. 1.5cmX1.5cm red abrasion to left arm cleansed with wound hospital cleaner, rinsed and gauze and Coban applied over wound. abrasion noted to abdomen and also to the left leg from fall. NEURO: No focal deficits. Alert and oriented x3. Course Course Emergency Course: Patient is aware of diagnosis, understands and agrees to treatment plan.? Anticipatory guidance given.? Patient agrees to follow-up as directed and is aware of reasons to seek care at the emergency department. Portions of this record may have been created with voice recognition software Level of Care: Express Care Visit Vital Signs Vital signs: Vital Signs Temperature 36.6 C 01/28/25 17: Pulse Rate 90 01/28/25 17:27 Respiratory Rate 18 01/28/25 17:27 Blood Pressure 149/86 H 01/28/25 17:27 Pulse Oximetry 98 01/28/25 17:27 Oxygen Delivery Room Air 01/28/25 17:27 Temperature 36.6 C 01/28/25 17:27 Pulse Rate 90 01/28/25 17:27 Respiratory Rate 18 01/28/25 17:27 Blood Pressure 149/86 H 01/28/25 17:27 Pulse Oximetry 98 01/28/25 17:27 Oxygen Delivery Room Air 01/28/25 17:27 Reviewed MDM - Extremity Injury (Upper) MDM Narrative Medical decision making narrative: Boostrix Tetanus was updated while patient was patient in clinic today Differential Diagnosis Differential diagnosis: Likely dislocation of shoulder (pain to left shoulder) and other (multiple abrasions) Medical Records Attestation: I reviewed the patient's medical records. Imaging Data My impression: no acute fracture or dislocation of left shoulder Radiologist's impression: [facility] [address] [id number] XRay Report Signed Patient: Dylan Angela Jr. : 1980 MR#: [id number] Age: 44 Acct:[id number] Loc: [facility] ADM Date: 01/28/25Attending Dr: Ordering Physician: Martine Romero APRN Date of Service: 01/28/25 Procedure(s): XR shoulder LT min 2V Accession Number(s): [id number] cc: RISHI,MEL TURNER; Martine Romero APRN~ HISTORY: fell off electric skateboard COMPARISON: 12/02/2023 TECHNIQUE: 2 views of the left shoulder were performed FINDINGS: No acute fracture. The glenohumeral and acromioclavicular joint space is maintained The visualized portion of the adjacent left lung is clear. The humeral head is well seated within the glenoid fossa. IMPRESSION: No acute fracture or anterior dislocation. Reviewed, dictated and finalized at location A. Please be advised this is a medical document. It is intended for rasp-qb-cbus communication. It is written in medical language and may contain unfamiliar abbreviations or verbiage. Medical documents are intended to carry relevant information, facts as evident, and the clinical opinion of the practitioner at the time of the encounter. This report may have been done utilizing a voice recognition system. Attempts have been made to correct errors. However, there may be uncorrected grammatical, spelling, and recognition errors present. The file time of this note does not necessarily represent the time of service. Dictated By: Blanca Aburto MD 01/28/25 9252 Signed By: <Electronically signed by Blanca Aburto MD in OV> Critical Care Time Critical Care Time Critical Care Time: No Discharge Plan Discharge Clinical Impression: Multiple abrasions Shoulder sprain Qualifiers: Encounter type: initial encounter Shoulder sprain type: unspecified sprain Laterality: left Qualified Code(s): S43.402A - Unspecified sprain of left shoulder joint, initial encounter Patient Disposition: Home Condition: Stable Instructions: Abrasion (ED), Shoulder Pain (ED) Additional Instructions: cleanse areas of road rash twice daily with soap and water and apply Mupiricin ointment watch for increasing infection--redness, swelling, drainage Tylenol or Ibuprofen for any pain or fever follow up with PCP in 7-10 days for a wound check recheck if develop fever, chills, increasing symptom Go to the ER if your symptoms become worse of if ANY new symptoms develop Ice to left shoulder 20 minutes every 2 hours while awake If your symptoms persist, change or worsen significantly before you can contact your personal physician then please, without delay, go to the emergency department for further evaluation. Follow-up with PCP in 7-10 days or sooner if needed Follow up with PCP soon in regards to your blood pressure which is elevated above threshold for referral. Blood pressure above 120/80 may indicate pre- hypertension. 149/86 Patient Language: Mohawk Prescriptions: New mupirocin [Centany] 2 % ointment 1 applic topical BID Qty: 22 0RF Follow-up/Referrals: Rishi,Mel Tidwell APN [Primary Care Provider] - Time of Disposition: 18:31 Quality [place] Coma Scale Eyes: Open Verbal: Oriented and Alert Motor: Follows Commands [place] Coma Total Score: 15
[2025-01-28] MEDS: TETANUS,DIPHTHERIA,AC PERTUSSIS ADULT (0.5 ML) BOOSTRIX IM (18:22)
== END 2025-01-28 18:36 | disposition home or self-care (01) ==
PROVIDERS: Emergency Provider Registered Nurse; PCP Nurse Practitioner Family
DX: S43.402A Unspecified sprain of left shoulder joint, initial encounter (principal); S30.811A Abrasion of abdominal wall, initial encounter; S40.812A Abrasion of left upper arm, initial encounter; S80.812A Abrasion, left lower leg, initial encounter; F17.210 Nicotine dependence, cigarettes, uncomplicated; Z23 Encounter for immunization; W18.30XA Fall on same level, unspecified, initial encounter
CPT/HCPCS: 73030; 90471; 90715; 99213; G0463